=== PATIENT | female | born 1995 | race Caucasian/White ===

== ENCOUNTER 2017-06-15 12:35 | Emergency (ER) | payer BC, OTHER ==
--- NOTE | 2017-06-15 15:46 | UC ---
Eye Complaint HPI - HPI Summary HPI Summary: patient had eye pain about 2 weeks ago, went away after stopping her contact lense wearing. came back this week, both eyes are irritated, left more than right, ring of erythema around the iris. - History of Current Complaint Chief Complaint: UCEye Stated Complaint: EYE IRRITATION Time Seen by Provider: 06/15/17 15:10 Hx Obtained From: Patient Hx Last Menstrual Period: 05/17/17 ?: No Onset/Duration: Sudden Onset, Lasting Days Timing: Days Severity Initially: Mild Severity Currently: Moderate Pain Intensity: 3 Location of Injury: Conjunctiva, Sclera - Allergies/Home Medications Allergies/Adverse Reactions: Allergies Allergy/AdvReac Type Severity Reaction Status Date / Time No Known Allergies Allergy Verified 06/15/17 15:05 Home Medications: Home Medications Ibuprofen TAB* [Advil TAB*] 400 mg PO Q6H PRN 06/15/17 [History Confirmed ] Naproxen Sodium [Aleve] 220 mg PO DAILY PRN 06/15/17 [History Confirmed 06/15/17 ] Norgestimate-Ethinyl Estradiol [Sprintec 28 0.25-35 mg-Mcg] 1 tab PO DAILY 06/15 [History Confirmed 06/15/17] PMH/Surg Hx/FS Hx/Imm Hx Previously Healthy: Yes - Surgical History Surgical History: Yes Surgery Procedure, Year, and Place: Kidney surgery at age 5 - Family History Known Family History: Negative: Cardiac Disease, Hypertension - Social History Alcohol Use: Weekly Substance Use Type: None Smoking Status (MU): Never Smoked Tobacco Review of Systems Constitutional: Negative Skin: Negative Eyes: Eye Redness, Photophobia ENT: Negative Respiratory: Negative Cardiovascular: Negative Gastrointestinal: Negative Genitourinary: Negative Motor: Negative Neurovascular: Negative Musculoskeletal: Negative Neurological: Negative Psychological: Negative Is Patient Immunocompromised?: No All Other Systems Reviewed And Are Negative: Yes Physical Exam Triage Information Reviewed: Yes Appearance: Well-Appearing, Well-Nourished, Pain Distress Vital Signs: Initial Vital Signs Temp 98.6 F 06/15/17 15:07 Pulse 77 06/15/17 15:07 Resp 18 06/15/17 15:07 BP 135/85 06/15/17 15:07 Pulse Ox 100 06/15/17 15:07 Vital Signs Reviewed: Yes Eyes: Positive: Conjunctiva Inflamed, Other: - ing of erythema aroundthe left iris, stye in lower right conjucntiva ENT Exam: Normal Dental Exam: Normal Neck exam: Normal Respiratory Exam: Normal Cardiovascular Exam: Normal Abdominal Exam: Normal Bowel Sounds: Positive: Present Musculoskeletal Exam: Normal Neurological Exam: Normal Psychological Exam: Normal Skin Exam: Normal Eye Complaint Course/Dx - Course Course Of Treatment: hx obtained, exam performed ,meds reviewed, treated for keratitis, adivsed follow up with her eye doctor in [place] this week, - Differential Dx/Diagnosis Differential Diagnosis/HQI/PQRI: Corneal Abrasion, Foreign Body, Keratitis Provider Diagnoses: keratitis of left eye Discharge - Discharge Plan Condition: Stable Disposition: HOME Prescriptions: Erythromycin OPHTH.OINT* [Ilotycin OPHTH.OINT*] 1 applic BOTH EYES BEDTIME #1 tube Patient Education Materials: Keratitis (ED) Referrals: Non Staff,Doctor [Primary Care Provider] - Additional Instructions: 1. use the cream as prescribed. 2. I recommend follow up with your eye doctor in the next week, sooner if not improving.
== END 2017-06-15 15:50 | disposition home or self-care (01) ==
LOC: UCCORT 12:35
DX: H16.9 Unspecified keratitis (principal); Z72.89 Other problems related to lifestyle
CPT/HCPCS: 99212; G0463

== ENCOUNTER 2017-09-10 07:05 | Emergency (ER) | payer BC, OTHER ==
[2017-09-10 07:53] VITALS: BP 143/93
--- NOTE | 2017-09-10 08:27 | RAD ---
INDICATION: Sudden right-sided neck pain. No trauma COMPARISON: None TECHNIQUE: Routine five-view imaging was performed FINDINGS: Bones: There are no acute bony findings. There are no significant osteoarthritic findings. Craniocervical junction: The odontoid and atlantodental interval are normal. Alignment: Normal Disc spaces: The disc spaces are well-maintained Soft tissues: The prevertebral soft tissues are normal. IMPRESSION: NEGATIVE EXAMINATION.
--- NOTE | 2017-09-10 09:08 | UC ---
Neck Pain HPI - HPI Summary HPI Summary: 22 yo female woke up approx 5:15am this am, moved head and felt pain in R post neck. No p/d/w. No rash. No recent trauma. Had similar episode in the 2016, saw PCP (in [place]), took approx 1 week prednisone with relief. As such, this is her 2nd episode of this. No recent illness. No cp / sob / GI upset. LMP current. - History of Current Complaint Chief Complaint: UCGeneralIllness Stated Complaint: RIGHT SIDE NECK Time Seen by Provider: 09/10/17 07:53 Hx Obtained From: Patient Hx Last Menstrual Period: 09/09/17 Pain Intensity: 8 - Allergies/Home Medications Allergies/Adverse Reactions: Allergies Allergy/AdvReac Type Severity Reaction Status Date / Time No Known Allergies Allergy Verified 09/10/17 07:46 PMH/Surg Hx/FS Hx/Imm Hx Previously Healthy: Yes - Surgical History Surgical History: Yes Surgery Procedure, Year, and Place: Kidney surgery at age 5 - Family History Known Family History: Negative: Cardiac Disease, Hypertension - Social History Alcohol Use: Weekly Substance Use Type: None Smoking Status (MU): Never Smoked Tobacco Review Of Systems Constitutional: Positive: Negative Skin: Positive: Negative Eyes: Positive: Negative ENT: Positive: Negative Respiratory: Positive: Negative Cardiovascular: Positive: Negative Gastrointestinal: Positive: Negative Genitourinary: Positive: Negative Musculoskeletal: Positive: Other: - see hpi Neurological: Positive: Other - see hpi All Other Systems Reviewed And Are Negative: Yes Physical Exam Triage Information Reviewed: Yes Appearance: Well-Nourished - sitting up. Looks uncomfortable with movement. Vital Signs: Initial Vital Signs Temp 98.2 F 09/10/17 07:41 Pulse 98 09/10/17 07:41 Resp 16 09/10/17 07:41 BP 143/93 09/10/17 07:41 Pulse Ox 100 09/10/17 07:41 Vital Signs Reviewed: Yes Eye Exam: Normal ENT Exam: Normal Neck exam: Other - Tender R post lat neck. + spasm. No point bony tenderness. Airway patent. No ant neck or throat pain. Respiratory Exam: Normal Respiratory: Positive: Chest non-tender, Lungs clear, Normal breath sounds, No respiratory distress, No accessory muscle use Cardiovascular Exam: Normal Cardiovascular: Positive: RRR, No Murmur, Pulses Normal, Brisk Capillary Refill Abdominal Exam: Normal Abdomen Description: Positive: Nontender Musculoskeletal Exam: Normal Musculoskeletal: Positive: Strength Intact, ROM Intact Neurological Exam: Normal Neurological: Positive: Alert, Muscle Tone Normal Psychological Exam: Normal - conversing easily and appropriately Skin Exam: Normal Neck Pain Course/Dx - Course Course Of Treatment: C-spine xray - reviewed with pt. See med[facility]. NAD. Reviewed coa / tx plan with Aub[facility]. Questions as posed answered to the best of my ability. Encourage pcp f/u. Declines school / work note. - Differential Dx/Diagnosis Provider Diagnoses: Acute torticollis Discharge - Sign-Out/Discharge Documenting (check all that apply): Discharge/Admit/Transfer - Discharge Plan Condition: Stable Disposition: HOME Prescriptions: Cyclobenzaprine TAB* [Flexeril 10 MG TAB*] 10 mg PO BID PRN #20 tab PRN Reason: Spasms predniSONE TAB* [Deltasone TAB*] 10 mg PO DAILY #20 tab Patient Education Materials: Spasmodic Torticollis (ED) Referrals: Non Staff,Doctor [Primary Care Provider] - Additional Instructions: Folllow up with your primary care physician in the next month or two as planned. Seek medical attention for worse or new problems in the meantime. Soft collar as needed for comfort. Do not stop prednisone suddenly, please continue through end of taper. Take prednisone in the morning or afternoon, not before sleep. Back up control method this and next menstrual cycle. - Billing Disposition and Condition Condition: STABLE Disposition: HOME
== END 2017-09-10 09:06 | disposition home or self-care (01) ==
LOC: UCCORT 07:05
DX: M43.6 Torticollis (principal)
CPT/HCPCS: 72050; 99213; G0463